=== PATIENT | male | born 1940 | race Caucasian/White ===

== ENCOUNTER 2021-10-10 11:37 | Inpatient (IN) ==
[2021-10-10 13:55] LABS: Basophils % 0.3 %; Eosinophils # 0.2 K/mcL (0.0-0.6); Eosinophils % 2.9 %; Hematocrit 45.8 % (37.5-50.1); Immature Granulocytes % 0.5 % (0-4); Lymphocytes # 0.3 K/mcL (0.6-4.6); Lymphocytes % 5.4 %; Mean Corpuscular HGB Conc 32.8 g/dL (31.6-35.5); Mean Corpuscular Hemoglobin 30.5 pg (28.0-33.3); Mean Corpuscular Volume 93.3 fL (83.0-100.0); Monocytes # 0.7 K/mcL (0.0-1.3); Monocytes % 10.8 %; Neutrophils # 4.9 K/mcL (1.6-8.9); Platelet Count 145 K/mcL (140-400); Red Blood Count 4.91 M/mcL (4.19-5.50); Red Cell Distribution Width 13.6 % (11.5-14.5); Segmented Neutrophils % 80.1 %; White Blood Count 6.1 K/mcL (4.3-11.1)
[2021-10-10 14:04] LABS: INR 1.3; Prothrombin Time 14.9 Seconds (9.4-12.1)
[2021-10-10 14:06] LABS: Activated Partial Thrombo Time 29.2 Seconds (26.0-36.0)
[2021-10-10 14:17] LABS: Potassium 4.7 mEq/L (3.5-5.1)
[2021-10-10 14:24] LABS: Troponin I 0.1 ng/mL (< 0.04)
[2021-10-10] MEDS ORDERED: 0.9 % Sodium Chloride 1,000 ML IVC ONE (16:30)
[2021-10-10 16:45] LABS: Bacteria,Urine Few per hpf (None-Few); Bilirubin,Urine Negative (Negative); Blood,Urine Trace (Negative); Clarity,Urine Clear (Clear); Color,Urine Yellow (Yellow); Glucose,Urine (UA) Normal (Normal); Granular Casts,Urine Moderate per lpf (None Seen); Hyaline Casts,Urine Few per lpf (None Seen); Ketones,Urine Negative (Negative); Leukocyte Esterase,Urine Negative (Negative); Mucus,Urine Few per lpf (None-Few); Nitrite,Urine Negative (Negative); Protein,Urine Trace mg/dL (Neg-Trace); RBC,Urine 0-3 per hpf (0-3); Specific Gravity,Urine 1.018 (1.010-1.025); Sperm,Urine Present per hpf (None Seen); Squamous Epithelial Cell,Urine Few per hpf (None-Few); Urobilinogen,Urine Normal (Normal); WBC,Urine 0-3 per hpf (0-3)
[2021-10-10] MEDS ORDERED: Naloxone 0.4 MG/ML INJ IVP PRN (16:45)
[2021-10-10] MEDS ORDERED: Ondansetron 4 MG/2 ML VIAL IVP PRN (16:45)
[2021-10-10] MEDS ORDERED: Melatonin 3 MG TABLET PO PRN (16:45)
[2021-10-10] MEDS ORDERED: Perflutren Lipid Microsphere 1.3 ML in 0.9 % Sodium Chloride 8.7 ML IVP PRN (16:50)
[2021-10-10] MEDS ORDERED: 0.9 % Sodium Chloride 2,000 ML IVC SCH (17:00)
[2021-10-11 03:11] LABS: Basophils % 0.4 %; Hematocrit 47.4 % (37.5-50.1); Hemoglobin 15.5 g/dL (12.9-16.9); Immature Granulocytes % 0.4 % (0-4); Lymphocytes # 0.4 K/mcL (0.6-4.6); Mean Corpuscular HGB Conc 32.7 g/dL (31.6-35.5); Mean Corpuscular Hemoglobin 30.9 pg (28.0-33.3); Mean Corpuscular Volume 94.4 fL (83.0-100.0); Mean Platelet Volume 10.1 fL (9.4-12.4); Monocytes # 0.6 K/mcL (0.0-1.3); Monocytes % 7.9 %; Platelet Count 135 K/mcL (140-400); Red Blood Count 5.02 M/mcL (4.19-5.50); Red Cell Distribution Width 13.9 % (11.5-14.5); Segmented Neutrophils % 85.3 %
[2021-10-11 03:32] LABS: Potassium 4.6 mEq/L (3.5-5.1)
[2021-10-11 03:52] LABS: Calcium 8.8 mg/dL (8.6-10.3); Chol/HDL Ratio 4.1 (0-4.9); Magnesium 2.5 mg/dL (1.6-2.6); Phosphorous 3.3 mg/dL (2.7-4.5); Troponin I 0.14 ng/mL (< 0.04)
[2021-10-11] MEDS: Sodium Bicarbonate 75 MEQ in 0.45 % Sodium Chloride 1,000 ML IVC SCH ×2 (10:30→19:41)
[2021-10-11] MEDS: Metoprolol XL (24 HR) Succ 50 MG TAB.ER.24H PO SCH (10:50)
[2021-10-12 04:52] LABS: BUN/Creatinine Ratio 42 (6-26); Blood Urea Nitrogen 55 mg/dL (8-23); Carbon Dioxide 21 mEq/L (23-29); Chloride 113 mEq/L (98-107); Glucose 112 mg/dL (70-105); Osmolality,Calculated 314 (280-300); Potassium 3.8 mEq/L (3.5-5.1); Sodium 144 mEq/L (136-145); eGFR For African Americans > 60 (> 60); eGFR For Non-African Americans 53 (> 60)
[2021-10-12] MEDS: Metoprolol XL (24 HR) Succ 50 MG TAB.ER.24H PO SCH (09:37)
[2021-10-12] MEDS: Acetaminophen 325 MG TABLET PO PRN (15:37)
[2021-10-12] MEDS: *HR* Rivaroxaban 15 MG TABLET PO SCH (18:18)
[2021-10-13 03:51] LABS: Calcium 8.3 mg/dL (8.6-10.3); Potassium 3.8 mEq/L (3.5-5.1)
[2021-10-13] MEDS: Metoprolol XL (24 HR) Succ 50 MG TAB.ER.24H PO SCH (08:24)
[2021-10-13 16:21] LABS: Adenovirus Not Detected (Not Detect); Coronavirus 229E Not Detected (Not Detect); Coronavirus HKU1 Not Detected (Not Detect); Coronavirus NL63 Not Detected (Not Detect); Coronavirus OC43 Not Detected (Not Detect)
[2021-10-13 16:23] LABS: Bordetella Pertussis Not Detected (Not Detect); Chlamydophila pneumoniae Not Detected (Not Detect); Human Metapneumovirus Not Detected (Not Detect); Human Rhinovirus/Enterovirus Not Detected (Not Detect); Influenza A Subtype 2009 H1 Not Detected (Not Detect); Influenza B Not Detected (Not Detect); Mycoplasma pneumoniae Not Detected (Not Detect); Parainfluenza Virus 1 Not Detected (Not Detect); Parainfluenza Virus 2 Not Detected (Not Detect); Parainfluenza Virus 3 Not Detected (Not Detect); Parainfluenza Virus 4 Not Detected (Not Detect); Respiratory Syncytial Virus Not Detected (Not Detect); SARS-CoV-2 DETECTED (Not Detect)
[2021-10-13] MEDS: *HR* Rivaroxaban 15 MG TABLET PO SCH (16:57)
[2021-10-13] MEDS: Acetaminophen 325 MG TABLET PO PRN (20:33)
[2021-10-14 09:32] LABS: Basophils % 0.3 %; Hematocrit 48.5 % (37.5-50.1); Hemoglobin 15.8 g/dL (12.9-16.9); Immature Granulocytes % 0.9 % (0-4); Lymphocytes # 0.4 K/mcL (0.6-4.6); Lymphocytes % 5.7 %; Mean Corpuscular HGB Conc 32.6 g/dL (31.6-35.5); Mean Corpuscular Hemoglobin 30.9 pg (28.0-33.3); Mean Corpuscular Volume 94.9 fL (83.0-100.0); Mean Platelet Volume 9.8 fL (9.4-12.4); Monocytes # 0.3 K/mcL (0.0-1.3); Monocytes % 4.9 %; Neutrophils # 5.6 K/mcL (1.6-8.9); Platelet Count 175 K/mcL (140-400); Red Blood Count 5.11 M/mcL (4.19-5.50); Red Cell Distribution Width 14.1 % (11.5-14.5); Segmented Neutrophils % 88.2 %; White Blood Count 6.3 K/mcL (4.3-11.1)
[2021-10-14 09:46] LABS: Albumin 3.4 g/dL (3.5-5.7); Albumin/Globulin Ratio 1.1 (1.1-2.2); Bilirubin,Total 0.9 mg/dL (0.3-1.0); Calcium 8.8 mg/dL (8.6-10.3); Globulin 3.2 g/dL (2.4-3.5); Potassium 4.4 mEq/L (3.5-5.1); Total Protein 6.6 g/dL (6.4-8.9)
[2021-10-14 09:47] LABS: Calcium 8.8 mg/dL (8.6-10.3); Potassium 4.4 mEq/L (3.5-5.1)
[2021-10-14] MEDS: Metoprolol XL (24 HR) Succ 50 MG TAB.ER.24H PO SCH (09:54)
[2021-10-14] MEDS: Acetaminophen 325 MG TABLET PO PRN (11:05)
[2021-10-14] MEDS ORDERED: *HR* HYDROcodone/Acet 5/325 mg TABLET PO PRN (15:20)
[2021-10-14] MEDS: *HR* Rivaroxaban 15 MG TABLET PO SCH (16:00)
[2021-10-14] MEDS: *HR* OxyCODONE Immed Rel 5 MG TABLET PO PRN ×2 (16:00→22:33)
[2021-10-14] MEDS ORDERED: Haloperidol Oral Conc 10 MG/5 ML UDC PO PRN (16:56)
[2021-10-15 04:53] LABS: Basophils % 0.3 %; Hematocrit 49.1 % (37.5-50.1); Hemoglobin 15.6 g/dL (12.9-16.9); Immature Granulocytes % 0.8 % (0-4); Lymphocytes # 0.5 K/mcL (0.6-4.6); Lymphocytes % 6.9 %; Mean Corpuscular HGB Conc 31.8 g/dL (31.6-35.5); Mean Corpuscular Hemoglobin 31.6 pg (28.0-33.3); Mean Corpuscular Volume 99.4 fL (83.0-100.0); Mean Platelet Volume 10.3 fL (9.4-12.4); Monocytes # 0.3 K/mcL (0.0-1.3); Monocytes % 5.2 %; Neutrophils # 5.7 K/mcL (1.6-8.9); Platelet Count 168 K/mcL (140-400); Red Blood Count 4.94 M/mcL (4.19-5.50); Red Cell Distribution Width 14.3 % (11.5-14.5); Segmented Neutrophils % 86.8 %; White Blood Count 6.5 K/mcL (4.3-11.1)
[2021-10-15 04:57] LABS: Albumin 3.3 g/dL (3.5-5.7); Bilirubin,Total 0.9 mg/dL (0.3-1.0); Calcium 8.7 mg/dL (8.6-10.3); Globulin 3.2 g/dL (2.4-3.5); Potassium 4.2 mEq/L (3.5-5.1); Total Protein 6.5 g/dL (6.4-8.9)
[2021-10-15] MEDS ORDERED: 0.9 % Sodium Chloride 500 ML IVC ONE (07:55)
[2021-10-15] MEDS ORDERED: 0.9 % Sodium Chloride 1,000 ML IVC SCH (08:00)
[2021-10-15] MEDS: Metoprolol XL (24 HR) Succ 50 MG TAB.ER.24H PO SCH (10:09)
[2021-10-15 11:44] VITALS: BP 160/66; PULSE 63; TEMP 98.2; O2SAT 90
== END 2021-10-15 14:23 | disposition hospice, inpatient (51) | DRG 682 ==
LOC: 3ANU 11:37 → EMEROOARM 11:37 → SUATTDRO 17:45 → 3ANU 19:38
PROVIDERS: ADMIT Hospitalist; ATTEND Family Medicine

== ENCOUNTER 2021-10-15 11:05 | Inpatient (IN) ==
[2021-10-15] MEDS ORDERED: *HR* LORazepam Oral Conc 2 MG/ML PO PRN (15:04)
[2021-10-15] MEDS ORDERED: Morphine Sulfate Oral CONC 10 MG/0.5 ML ORAL.SYG PO PRN (15:04)
[2021-10-15] MEDS ORDERED: Haloperidol Lactate 5 MG/ML VIAL IVP PRN (15:04)
[2021-10-15] MEDS ORDERED: Bisacodyl 10 MG RECTAL SUPPOSITORY RC PRN (15:04)
[2021-10-15] MEDS ORDERED: Scopolamine Patch 1.5 MG PATCH.TD72 TD SCH (15:15)
[2021-10-15] MEDS: *HR* LORazepam 2 MG/ML VIAL IVP PRN ×2 (17:01→22:38)
[2021-10-15] MEDS: Morphine Sulfate 2 MG/ML SYRINGE IVP PRN ×2 (17:01→22:40)
[2021-10-15 19:27] VITALS: BP 122/60
[2021-10-16] MEDS: Morphine Sulfate 2 MG/ML SYRINGE IVP PRN ×3 (01:29→08:30)
[2021-10-16] MEDS: *HR* LORazepam 2 MG/ML VIAL IVP PRN (08:29)
[2021-10-16 11:24] VITALS: PULSE 62; TEMP 101.4; O2SAT 81
== END 2021-10-16 12:30 | disposition expired | DRG 951 ==
LOC: 2ANU 14:28
PROVIDERS: ADMIT Internal Medicine Hospice and Palliative Medicine; ATTEND Internal Medicine Hospice and Palliative Medicine